=== PATIENT | male | born 1970 | race Caucasian/White ===

== ENCOUNTER 2018-02-26 10:48 | Inpatient (IN) | payer OTHER ==
[~2018-02-26] VITALS: Ht 177.8 cm; Wt 110.4 kg
[2018-02-26] MEDS ORDERED: GLIP10TA13 PO (11:38)
[2018-02-26] MEDS ORDERED: METF500T27 PO (11:38)
[2018-02-26] MEDS ORDERED: LISI-167 PO (11:40)
[2018-02-26] MEDS ORDERED: AMPICILLIN/SULBACTAM 3 GM in SODIUM CHLORIDE 0.9% 100 ML IVPB ONE (12:00)
[2018-02-26] MEDS ORDERED: SODIUM CHLORIDE FLUSH 10ML SYR IVF ONE (12:00)
[2018-02-26 12:10] LABS: BASOPHILS # (AUTO) 0.05 x10^3/uL (0-0.1); BASOPHILS % (AUTO) 1 % (0-1); EOSINOPHILS # (AUTO) 0.14 x10^3/uL (0-0.4); EOSINOPHILS % (AUTO) 2 % (1-7); LYMPHOCYTES # (AUTO) 2.15 x10^3/uL (1-3.4); LYMPHOCYTES % (AUTO) 34 % (22-44); MD NO; MEAN CORPUSCULAR HEMOGLOBIN 30.2 pg (27.5-34.5); MEAN CORPUSCULAR HGB CONC 33.9 g/dL (33.2-36.2); MEAN CORPUSCULAR VOLUME 89.2 fL (81-97); MEAN PLATELET VOLUME 7.4 fL (7.4-10.4); MONOCYTES % (AUTO) 8 % (2-9); NEUTROPHILS # (AUTO) 3.41 x10^3/uL (1.8-6.8); NEUTROPHILS % (AUTO) 55 % (42-75); PLATELET COUNT 436 x10^3/uL (130-400); RED CELL DISTRIBUTION WIDTH 12.5 % (9.4-14.8)
[2018-02-26 12:24] LABS: ALBUMIN 3.3 g/dL (3.4-5.0); ANION GAP 9 mmol/L (5-15); CALCIUM 8.8 mg/dL (8.5-10.1); CHLORIDE 104 mmol/L (98-107); CREATININE 0.87 mg/dL (0.7-1.3)
[2018-02-26] MEDS ORDERED: SODIUM CHLORIDE FLUSH 10ML SYR IVF PRN (12:30)
[2018-02-26] MEDS ORDERED: GLUCAGON 1 MG IM PRN (13:30)
[2018-02-26] MEDS ORDERED: DEXTROSE 4 GM TAB.CHEW PO PRN (13:30)
[2018-02-26] MEDS ORDERED: ONDANSETRON 2MG/ML, 2ML IVPush PRN (13:30)
[2018-02-26] MEDS ORDERED: DEXTROSE 50%, 50ML SYRINGE IVPush PRN (13:30)
[2018-02-26] MEDS ORDERED: AMPICILLIN/SULBACTAM 3 GM in SODIUM CHLORIDE 0.9% 100 ML IV SCH (13:30)
[2018-02-26] MEDS ORDERED: ONDANSETRON ODT 4 MG PO PRN (13:30)
[2018-02-26 15:35] VITALS: BP 119/76
[2018-02-26] MEDS: INSULIN LISPRO 100 UNITS/ML, PEN SQ-INSULIN SCH ×2 (17:49→21:29)
[2018-02-26] MEDS: ENOXAPARIN 40 MG/0.4 ML SQ SCH (17:52)
[2018-02-26] MEDS ORDERED: PNEUMOC 13-VALENT VACC, 0.5 ML IM-VACC ONE (19:00)
[2018-02-26] MEDS ORDERED: FLU VAC QS18-19(4YR UP)CEL/PF 0.5ML IM-VACC ONE (19:00)
[2018-02-26 19:15] VITALS: BP 119/74
[2018-02-26] MEDS: AMPICILLIN/SULBACTAM 3 GM in SODIUM CHLORIDE 0.9% 100 ML IV SCH (20:06)
[2018-02-26] MEDS: metFORMIN 500 MG TABLET PO SCH (21:29)
[2018-02-26] MEDS: SODIUM CHLORIDE FLUSH 10ML SYR IVF SCH (21:30)
[2018-02-27] MEDS: AMPICILLIN/SULBACTAM 3 GM in SODIUM CHLORIDE 0.9% 100 ML IV SCH ×4 (01:59→21:02)
[2018-02-27 02:12] VITALS: BP 99/61
[2018-02-27 05:27] LABS: BASOPHILS # (AUTO) 0.03 x10^3/uL (0-0.1); BASOPHILS % (AUTO) 1 % (0-1); EOSINOPHILS # (AUTO) 0.15 x10^3/uL (0-0.4); EOSINOPHILS % (AUTO) 2 % (1-7); LYMPHOCYTES # (AUTO) 2.52 x10^3/uL (1-3.4); LYMPHOCYTES % (AUTO) 39 % (22-44); MD NO; MEAN CORPUSCULAR HEMOGLOBIN 30.6 pg (27.5-34.5); MEAN CORPUSCULAR HGB CONC 34.1 g/dL (33.2-36.2); MEAN CORPUSCULAR VOLUME 89.7 fL (81-97); MEAN PLATELET VOLUME 7.6 fL (7.4-10.4); MONOCYTES # (AUTO) 0.54 x10^3/uL (0.2-0.8); MONOCYTES % (AUTO) 9 % (2-9); NEUTROPHILS # (AUTO) 3.14 x10^3/uL (1.8-6.8); NEUTROPHILS % (AUTO) 49 % (42-75); PLATELET COUNT 370 x10^3/uL (130-400); RED BLOOD COUNT 4.67 x10^6/uL (4.38-5.82); RED CELL DISTRIBUTION WIDTH 12.5 % (9.4-14.8)
[2018-02-27 05:34] LABS: ANION GAP 7 mmol/L (5-15); CALCIUM 8.5 mg/dL (8.5-10.1); CHLORIDE 108 mmol/L (98-107); CREATININE 0.89 mg/dL (0.7-1.3)
[2018-02-27 06:16] LABS: HEMOGLOBIN A1C 10.8 % (4.2-6.3)
[2018-02-27 07:54] VITALS: BP 117/67
[2018-02-27] MEDS: INSULIN LISPRO 100 UNITS/ML, PEN SQ-INSULIN SCH ×4 (08:14→21:03)
[2018-02-27] MEDS: SODIUM CHLORIDE FLUSH 10ML SYR IVF SCH ×2 (08:15→21:00)
[2018-02-27] MEDS: metFORMIN 500 MG TABLET PO SCH ×2 (08:15→21:02)
[2018-02-27] MEDS: LISINOPRIL 5 MG TABLET PO SCH (08:16)
[2018-02-27] MEDS ORDERED: LIDOCAINE-MPF 1%, 5ML ONE (10:47)
[2018-02-27] MEDS: ENOXAPARIN 40 MG/0.4 ML SQ SCH (13:30)
[2018-02-27 14:10] VITALS: BP 111/76
[2018-02-27] MEDS: ACETAMINOPHEN 325 MG TABLET PO PRN ×2 (17:27→21:57)
[2018-02-27 19:37] VITALS: BP 100/63
[2018-02-27] MEDS ORDERED: INSULIN GLARGINE 100 UNITS/ML, PEN SQ-INSULIN SCH (21:00)
[2018-02-28 01:19] VITALS: BP 102/64
[2018-02-28] MEDS: AMPICILLIN/SULBACTAM 3 GM in SODIUM CHLORIDE 0.9% 100 ML IV SCH ×4 (02:08→14:14)
[2018-02-28] MEDS: INSULIN LISPRO 100 UNITS/ML, PEN SQ-INSULIN SCH ×3 (07:48→16:32)
[2018-02-28 08:06] VITALS: BP 113/73
[2018-02-28] MEDS: metFORMIN 500 MG TABLET PO SCH (08:46)
[2018-02-28] MEDS: LISINOPRIL 5 MG TABLET PO SCH (08:47)
[2018-02-28] MEDS: SODIUM CHLORIDE FLUSH 10ML SYR IVF SCH (08:49)
[2018-02-28] MEDS ORDERED: ACET325T14 PO (13:12)
[2018-02-28] MEDS ORDERED: GLIP10TA13 PO (13:12)
[2018-02-28] MEDS ORDERED: INSU100I13 SQ-INSULIN (13:12)
[2018-02-28] MEDS ORDERED: INSU100I11 SQ-INSULIN (13:12)
[2018-02-28] MEDS ORDERED: LISI-167 PO (13:12)
[2018-02-28] MEDS: ENOXAPARIN 40 MG/0.4 ML SQ SCH (13:30)
[2018-02-28 14:10] VITALS: BP 110/75
[2018-02-28] MEDS: ERTAPENEM 1 GM in SODIUM CHLORIDE 0.9% 50 ML IV ONE ×2 (15:10→15:33)
== END 2018-02-28 16:55 | disposition home or self-care (01) | DRG 602 ==
LOC: ED 12:15 → 3NE 12:16 → ED 12:40 → DCLOUNGE 02-28 16:37
PROVIDERS: ADMIT Hospitalist; ATTEND Hospitalist
PROC: 02HV33Z Insertion of Infusion Device into Superior Vena Cava, Percutaneous Approach (ICD-10-PCS; principal; 2018-02-27)
PROC: B5181ZA Fluoroscopy of Superior Vena Cava using Low Osmolar Contrast, Guidance (ICD-10-PCS; 2018-02-27)
PROC: B548ZZA Ultrasonography of Superior Vena Cava, Guidance (ICD-10-PCS; 2018-02-27)
DX: L03.116 Cellulitis of left lower limb (principal); E11.10 Type 2 diabetes mellitus with ketoacidosis without coma; M86.172 Other acute osteomyelitis, left ankle and foot; E11.69 Type 2 diabetes mellitus with other specified complication; E11.40 Type 2 diabetes mellitus with diabetic neuropathy, unspecified; E11.621 Type 2 diabetes mellitus with foot ulcer; E66.9 Obesity, unspecified; Z68.34 Body mass index [BMI] 34.0-34.9, adult; L40.9 Psoriasis, unspecified; L97.509 Non-pressure chronic ulcer of other part of unspecified foot with unspecified severity; Z79.4 Long term (current) use of insulin; Z80.6 Family history of leukemia; Z82.3 Family history of stroke; Z83.3 Family history of diabetes mellitus; Z87.891 Personal history of nicotine dependence; Z23 Encounter for immunization
CPT/HCPCS: 36415; 36569; 76937; 77001; 80048; 82040; 82962; 83036; 83605; 85025; 87040; 90656; 99285; G0378; J0295; J1335; J1650; C1751; G0009; J1815

== ENCOUNTER 2018-04-17 14:41 | Inpatient (IN) | payer OTHER ==
[~2018-04-17] VITALS: Ht 177.8 cm; Wt 102.9 kg
[~2018-04-17 14:41] MED LIST: ACET325T14 PO; GLIP10TA13 PO; INSU100I11 SQ-INSULIN; INSU100I13 SQ-INSULIN; LISI-167 PO; METF500T27 PO
[2018-04-17 15:48] LABS: BASOPHILS # (AUTO) 0.04 x10^3/uL (0-0.1); BASOPHILS % (AUTO) 0 % (0-1); EOSINOPHILS # (AUTO) 0.19 x10^3/uL (0-0.4); EOSINOPHILS % (AUTO) 2 % (1-7); LYMPHOCYTES # (AUTO) 1.97 x10^3/uL (1-3.4); LYMPHOCYTES % (AUTO) 20 % (22-44); MD NO; MEAN CORPUSCULAR HEMOGLOBIN 29.5 pg (27.5-34.5); MEAN CORPUSCULAR HGB CONC 33.9 g/dL (33.2-36.2); MEAN CORPUSCULAR VOLUME 86.8 fL (81-97); MEAN PLATELET VOLUME 8.4 fL (7.4-10.4); MONOCYTES # (AUTO) 0.56 x10^3/uL (0.2-0.8); MONOCYTES % (AUTO) 6 % (2-9); NEUTROPHILS # (AUTO) 7.07 x10^3/uL (1.8-6.8); NEUTROPHILS % (AUTO) 72 % (42-75); PLATELET COUNT 331 x10^3/uL (130-400); RED BLOOD COUNT 5.48 x10^6/uL (4.38-5.82); RED CELL DISTRIBUTION WIDTH 12.5 % (9.4-14.8)
[2018-04-17] MEDS ORDERED: ONDANSETRON 2MG/ML, 2ML ONE (15:51)
[2018-04-17 16:02] LABS: ALBUMIN 4.5 g/dL (3.4-5.0); ANION GAP 8 mmol/L (5-15); CALCIUM 9.7 mg/dL (8.5-10.1); CHLORIDE 106 mmol/L (98-107)
[2018-04-17 16:07] LABS: ALANINE AMINOTRANSFERASE 31 U/L (12-78); ALKALINE PHOSPHATASE 77 U/L (45-117); BILIRUBIN,TOTAL 0.7 mg/dL (0.2-1.0); CREATININE 1.13 mg/dL (0.7-1.3); TOTAL PROTEIN 8.5 g/dL (6.4-8.2)
[2018-04-17] MEDS ORDERED: ERTAPENEM 1 GM in SODIUM CHLORIDE 0.9% 50 ML IV ONE (17:00)
[2018-04-17] MEDS ORDERED: SODIUM CHLORIDE FLUSH 10ML SYR IVF ONE (17:00)
[2018-04-17] MEDS ORDERED: ONDANSETRON 2MG/ML, 2ML IVPush ONE (17:00)
[2018-04-17 17:21] LABS: HCT (SEDRATE) 47.6 % (39.2-51.8)
[2018-04-17] MEDS ORDERED: BISACODYL 10 MG SUPP PR PRN (18:00)
[2018-04-17] MEDS ORDERED: hydrALAzine 20 MG/ML, 1ML IVPush PRN (18:00)
[2018-04-17] MEDS ORDERED: ONDANSETRON 2MG/ML, 2ML IVPush PRN (18:00)
[2018-04-17] MEDS ORDERED: LIDODERM 5% PATCH TD PRN (18:00)
[2018-04-17] MEDS ORDERED: ACETAMINOPHEN 325 MG TABLET PO PRN (18:00)
[2018-04-17] MEDS ORDERED: DOCUSATE 100 MG CAPSULE PO PRN (18:00)
[2018-04-17] MEDS ORDERED: ONDANSETRON ODT 4 MG PO PRN (18:00)
[2018-04-17] MEDS ORDERED: GABAPENTIN 300 MG CAPSULE PO PRN (18:00)
[2018-04-17] MEDS ORDERED: ZOLPIDEM 5MG TABLET PO PRN (18:00)
[2018-04-17] MEDS ORDERED: ERTAPENEM 1 GM in SODIUM CHLORIDE 0.9% 50 ML IV SCH (18:30)
[2018-04-17 18:44] LABS: FREE T4 (FREE THYROXINE) 1.12 ng/dL (0.76-1.46); THYROID STIMULATING HORMONE 1.21 mIU/L (0.358-3.740)
[2018-04-17 18:57] LABS: HEMOGLOBIN A1C 8.5 % (4.2-6.3)
[2018-04-17] MEDS: ENOXAPARIN 40 MG/0.4 ML SQ SCH (21:00)
[2018-04-17] MEDS: metFORMIN XR 500 MG TAB.ER.24H PO SCH (21:56)
[2018-04-17] MEDS: FAMOTIDINE 20 MG TABLET PO SCH (21:56)
[2018-04-17] MEDS: INSULIN GLARGINE 100 UNITS/ML, PEN SQ-INSULIN SCH (22:13)
[2018-04-17] MEDS: INSULIN LISPRO 100 UNITS/ML, PEN SQ-INSULIN SCH (22:14)
[2018-04-17 22:19] VITALS: BP 101/60
[2018-04-18 00:48] VITALS: BP 106/68
[2018-04-18 05:54] LABS: BASOPHILS # (AUTO) 0.06 x10^3/uL (0-0.1); BASOPHILS % (AUTO) 1 % (0-1); EOSINOPHILS # (AUTO) 0.22 x10^3/uL (0-0.4); EOSINOPHILS % (AUTO) 2 % (1-7); LYMPHOCYTES # (AUTO) 1.77 x10^3/uL (1-3.4); LYMPHOCYTES % (AUTO) 19 % (22-44); MD NO; MEAN CORPUSCULAR HEMOGLOBIN 29.7 pg (27.5-34.5); MEAN CORPUSCULAR HGB CONC 34.1 g/dL (33.2-36.2); MEAN CORPUSCULAR VOLUME 87.1 fL (81-97); MEAN PLATELET VOLUME 8.6 fL (7.4-10.4); MONOCYTES # (AUTO) 0.85 x10^3/uL (0.2-0.8); MONOCYTES % (AUTO) 9 % (2-9); NEUTROPHILS # (AUTO) 6.49 x10^3/uL (1.8-6.8); NEUTROPHILS % (AUTO) 69 % (42-75); PLATELET COUNT 325 x10^3/uL (130-400); RED BLOOD COUNT 5.36 x10^6/uL (4.38-5.82)
[2018-04-18 06:08] LABS: ANION GAP 10 mmol/L (5-15); CALCIUM 9.3 mg/dL (8.5-10.1); CHLORIDE 104 mmol/L (98-107)
[2018-04-18 06:12] LABS: CHOL/HDL RATIO 6.8; CHOLESTEROL, TOTAL 156 mg/dL (140-239); CREATININE 1.02 mg/dL (0.7-1.3); HDL CHOL % 15 % (26-37); HDL CHOLESTEROL (DIRECT) 23 mg/dL (40-60); LDL CHOLESTEROL,CALCULATED 99 mg/dL (54-169); LDL/HDL RATIO 4.3 (0.5-3.0); TRIGLYCERIDES 171 mg/dL (50-200); VLDL CHOLESTEROL 34 mg/dL (0-25)
[2018-04-18] MEDS: INSULIN LISPRO 100 UNITS/ML, PEN SQ-INSULIN SCH ×4 (07:23→21:44)
[2018-04-18 08:19] VITALS: BP 104/65
[2018-04-18] MEDS: metFORMIN XR 500 MG TAB.ER.24H PO SCH ×2 (08:39→20:50)
[2018-04-18] MEDS: FAMOTIDINE 20 MG TABLET PO SCH ×2 (08:40→20:51)
[2018-04-18] MEDS: LISINOPRIL 10 MG TABLET PO SCH (08:41)
[2018-04-18 09:08] LABS: MICROSCOPIC NOT IND
[2018-04-18 09:11] LABS: CULTURE INDICATED? NO
[2018-04-18] MEDS ORDERED: GADOBUTROL 10 MMOL/10 ML PFS ONE (15:04)
[2018-04-18 15:30] VITALS: BP 108/70
[2018-04-18] MEDS: ERTAPENEM 1 GM in SODIUM CHLORIDE 0.9% 50 ML IV SCH (16:30)
[2018-04-18 19:20] VITALS: BP 114/70
[2018-04-18] MEDS: ENOXAPARIN 40 MG/0.4 ML SQ SCH (20:52)
[2018-04-18] MEDS: INSULIN GLARGINE 100 UNITS/ML, PEN SQ-INSULIN SCH (21:44)
[2018-04-19 01:30] VITALS: BP 103/62
[2018-04-19 05:34] LABS: ANION GAP 8 mmol/L (5-15); CHLORIDE 105 mmol/L (98-107)
[2018-04-19 05:36] LABS: CALCIUM 8.9 mg/dL (8.5-10.1); CREATININE 1.04 mg/dL (0.7-1.3)
[2018-04-19 05:52] LABS: BASOPHILS # (AUTO) 0.05 x10^3/uL (0-0.1); BASOPHILS % (AUTO) 1 % (0-1); EOSINOPHILS # (AUTO) 0.38 x10^3/uL (0-0.4); EOSINOPHILS % (AUTO) 7 % (1-7); LYMPHOCYTES # (AUTO) 2.21 x10^3/uL (1-3.4); LYMPHOCYTES % (AUTO) 39 % (22-44); MD NO; MEAN CORPUSCULAR HEMOGLOBIN 29.7 pg (27.5-34.5); MEAN CORPUSCULAR HGB CONC 34.2 g/dL (33.2-36.2); MEAN CORPUSCULAR VOLUME 86.8 fL (81-97); MEAN PLATELET VOLUME 8.5 fL (7.4-10.4); MONOCYTES # (AUTO) 0.85 x10^3/uL (0.2-0.8); MONOCYTES % (AUTO) 15 % (2-9); NEUTROPHILS % (AUTO) 39 % (42-75); PLATELET COUNT 275 x10^3/uL (130-400); RED BLOOD COUNT 4.93 x10^6/uL (4.38-5.82); RED CELL DISTRIBUTION WIDTH 12.5 % (9.4-14.8)
[2018-04-19] MEDS: INSULIN LISPRO 100 UNITS/ML, PEN SQ-INSULIN SCH ×3 (07:00→16:00)
[2018-04-19 07:50] VITALS: BP 104/67
[2018-04-19] MEDS: LISINOPRIL 10 MG TABLET PO SCH (08:36)
[2018-04-19] MEDS: metFORMIN XR 500 MG TAB.ER.24H PO SCH (08:36)
[2018-04-19] MEDS: FAMOTIDINE 20 MG TABLET PO SCH (08:37)
[2018-04-19 14:24] VITALS: BP 111/70
[2018-04-19] MEDS ORDERED: AMOX500T PO (14:26)
[2018-04-19] MEDS: ERTAPENEM 1 GM in SODIUM CHLORIDE 0.9% 50 ML IV SCH (15:48)
== END 2018-04-19 16:40 | disposition home or self-care (01) | DRG 638 ==
LOC: ED 15:32 → EDIP 17:58 → 4NOR 19:54
PROVIDERS: ADMIT Hospitalist; ATTEND Hospitalist
DX: E11.69 Type 2 diabetes mellitus with other specified complication (principal); L03.116 Cellulitis of left lower limb; L97.809 Non-pressure chronic ulcer of other part of unspecified lower leg with unspecified severity; M86.8X7 Other osteomyelitis, ankle and foot; E11.40 Type 2 diabetes mellitus with diabetic neuropathy, unspecified; E11.621 Type 2 diabetes mellitus with foot ulcer; L40.9 Psoriasis, unspecified; L97.529 Non-pressure chronic ulcer of other part of left foot with unspecified severity; Z79.4 Long term (current) use of insulin; Z83.3 Family history of diabetes mellitus; Z87.891 Personal history of nicotine dependence
CPT/HCPCS: 36415; 80048; 80053; 80061; 81003; 82962; 83036; 84439; 84443; 85025; 85651; 86140; 86141; 87040; 87070; 87205; 96365; A9585; G0378; J1335; J1815